=== PATIENT | male | born 1990 | race American Indian/Alaskan Native ===

== ENCOUNTER 2021-10-26 21:17 | Emergency (ER) | payer OTHER ==
[2021-10-26 22:03] VITALS: BP 110/70
[2021-10-26] MEDS ORDERED: ACETAMINOPHEN 500 MG TAB PO ONE (22:07)
[2021-10-26] MEDS ORDERED: IBUPROFEN 600 MG TAB PO ONE (22:07)
[2021-10-27] MEDS ORDERED: ACETAMINOPHEN 500 MG TAB PO ONE (00:30)
[2021-10-27] MEDS ORDERED: IBUPROFEN 600 MG TAB PO ONE (00:30)
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
== END 2021-10-27 03:02 | disposition home or self-care (01) ==
LOC: ED 21:17
DX: S20.211A Contusion of right front wall of thorax, initial encounter (principal); Z79.899 Other long term (current) drug therapy; V89.2XXA Person injured in unspecified motor-vehicle accident, traffic, initial encounter; Y93.89 Activity, other specified; Y92.488 Other paved roadways as the place of occurrence of the external cause; Y99.8 Other external cause status
CPT/HCPCS: 99283